=== PATIENT | male | born 2000 | race Caucasian/White ===

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

== ENCOUNTER → 2018-04-23 15:21 | Outpatient (CLI) | payer SELFPAY ==
[2018-04-23 16:56] LABS: Free T3 3.4 pg/mL (2.18-3.98); T4 Free Direct 1.07 ng/dL (0.76-1.46); Thyroid Stim Hormone (TSH) 2.64 uIU/mL (0.358-3.74)
== END ==
PROVIDERS: Family Provider Family Medicine; PCP Family Medicine; Visit Provider Nurse Practitioner
DX: E03.9 Hypothyroidism, unspecified (principal)
CPT/HCPCS: 36415; 84439; 84443; 84481

== ENCOUNTER 2019-02-05 20:54 | Emergency (ER) | payer SELFPAY ==
[2019-02-05 20:55] VITALS: BP 122/77; PULSE 102; RESP 16; TEMP 36.8; O2SAT 98; BMI 25.2
--- NOTE | 2019-02-05 22:30 | ED.VISSUMM ---
- ER Visit Summary Date of Service: 02/05/19 Chief Complaint: Right ear pain and decreased hearing History of Present Illness: The patient is a 19 M who presents with right ear pain and decreased hearing from the right ear. He was playing basketball and was hit in the right ear with a basketball. He had immediate pain and complains of decreased hearing since that time. He does have a history of surgery 8 years ago for a hole in his ear. No fever. No headache. No vomiting. Physical Examination: Heart rate 102 vitals otherwise normal There is scarring of the right tympanic membrane and some effusion but I do not appreciate any perforation or hematorrhea/otorrhea Heart regular rate and rhythm Lungs clear Test Results: Not indicated Emergency Department Course and Treatment: Patient advised to follow-up with otolaryngology. Patient discharged. Treatment Plan: [] Disposition: Discharge Impression: Right ear pain This note was generated with [employer] dictation software. It may contain incorrect words, spelling, and punctuation that were not noted in review of the chart prior to signing ED Disposition - Plan for ED Patient: Referrals: NOT,DEFINED [Primary Care Provider] -
--- NOTE | 2019-02-05 22:31 | ED.DEP ---
ED Disposition - Plan for ED Patient: Referrals: NOT,DEFINED [Primary Care Provider] - Luis Alberto Cheema MD [STAFF PHYSICIAN] - Additional Instructions: You were seen today for right ear pain after being hit with a basketball. It is important that you follow-up with ENT given your prior history of surgery. Return for new or worsening symptoms.
== END 2019-02-05 22:38 | disposition home or self-care (01) ==
LOC: ED 22:34
PROVIDERS: Emergency Provider Emergency Medicine
DX: H92.01 Otalgia, right ear (principal); W21.05XA Struck by basketball, initial encounter; Y93.67 Activity, basketball; Y92.9 Unspecified place or not applicable; E03.9 Hypothyroidism, unspecified; Z79.899 Other long term (current) drug therapy
CPT/HCPCS: 99282

== ENCOUNTER 2019-11-27 17:42 | Emergency (ER) | payer SELFPAY ==
[2019-11-27 17:42] VITALS: BP 150/83; PULSE 92; RESP 16; TEMP 36.6; O2SAT 99; BMI 25.8
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
== END 2019-11-27 19:58 | disposition home or self-care (01) ==
PROVIDERS: Emergency Provider Emergency Medicine
DX: S06.0X0A Concussion without loss of consciousness, initial encounter (principal); W51.XXXA Accidental striking against or bumped into by another person, initial encounter; Y93.9 Activity, unspecified; Y92.9 Unspecified place or not applicable; E03.9 Hypothyroidism, unspecified; Z79.899 Other long term (current) drug therapy
CPT/HCPCS: 70450; 72125; 99282

== ENCOUNTER 2020-07-16 21:49 | Emergency (ER) | payer OTHER, MEDICAID, SELFPAY ==
[2020-07-16 21:50] VITALS: BP 129/73; PULSE 50; RESP 17; TEMP 37.2; O2SAT 100; BMI 24.2
--- NOTE | 2020-07-16 22:10 | RAD_ITS ---
HISTORY: Injury playing basketball Sunday, pain laterally. COMPARISON: None FINDINGS: # of images incl. paperwork: 4 XR Shoulder Min 2 Views: Right BONE AND JOINTS: No acute fracture or subluxation. SOFT TISSUES: Unremarkable. No radiopaque foreign body. RAD/Shoulder min 2 Views IMPRESSION: No acute pathology If symptoms persist, repeat study in 10-14 days or sooner if clinically indicate at 2356 Reported and signed by: Марина Ng DO Electronically Signed: Марина Ng DO at 23:55 EDT Tel , Service support ,
--- NOTE | 2020-07-16 22:11 | ED.VIS.GEN ---
History of Present Illness Chief Complaint: Upper Extremity Injury Informant: Patient Narrative: 20-year-old male with past medical history of hypothyroidism presents with right shoulder pain. States that he was playing basketball approximately 5 days ago when he fell on his right shoulder. Has had pain since that time. Worse with movement. Denies any relieving factors. Denies any numbness or tingling. Describes the pain as aching. Denies any head injury. Past Medical History - Allergies and Home Meds Allergies/Adverse Reactions: Allergies No Known Allergies Allergy (Verified 07/16/20 21:49) Primary Care Physician: Care Physician,No Primary [Primary Care Provider] - Past Medical History: - - hypothyroidism Surgical History: tonsillectomy Lives: With Family Smoking Status: Smoker, status unknown Alcohol: None Drugs: None Review of Systems General: Denies: Chills, Fever, Sweats Eyes: Denies: Visual changes - bilaterally, Diplopia ENT: Denies: Rhinorrhea, Sore throat Cardiovascular: Denies: Chest pain, Palpitations Respiratory: Denies: Dyspnea, Cough, Dyspnea on exertion Gastrointestinal: Denies: Abdominal pain, Nausea, Vomiting, Diarrhea, Melena, Hematochezia Genitourinary: Denies: Dysuria, Hematuria, Frequency Musculoskeletal: Reports: Arthralgias. Denies: Back pain, Extremity Pain Skin: Denies: Rash, Wounds Neurological: Denies: Headache, Weakness, Numbness Physical Exam Vital Signs/Narrative: Vital Signs Temp Pulse Resp BP Pulse Ox 07/16/20 21:50 99.0 F 50 L 17 129/73 H 100 Inital Vital Signs reviewed: Yes General: Well nourished, Well developed, No Acute Distress Head: Normocephalic, Atraumatic Eyes: Perrl, EOMI ENT: Moist mucous membranes, No rhinorrhea Neck: Supple, Nontender Cardiovascular: Regular rate, Regular rhythm, No murmurs Respiratory: No distress, CTA bilaterally, Chest nontender Abdomen: Soft, Nontender, Nondistended, Normal bowel sounds Back: Nontender, Normal Inspection Extremities: No edema, - - TTP of the right anterior shoulder. ROM limited by pain. Skin: Normal color, No rash Neurological: Alert, Oriented x3, Cranial nerves II-XII grossly intact, Normal Strength, Normal Sensation Psychological: Normal affect, Normal Mood Diagnostic/Tx/Re-eval - Medical Decision Making Patient appears well and nontoxic. Patient given intramuscular Toradol which did improve his pain. X-ray not currently read by radiologist at the time but I see no acute fracture dislocation. Patient will be given Naprosyn for home. Orthopedic follow-up if continued pain. Asked return for new or worsening symptoms. Discharged home in stable condition. Impression: 1. Right shoulder contusion ED Disposition - Plan for ED Patient: Disposition: Home or Assisted Living Instructions: ED EXTREMITY CONTUSION Upper Prescriptions: Naproxen [Naprosyn] 500 mg PO BID #14 tab Prescription Printed Referrals: Minnie Teresa MD [STAFF PHYSICIAN] - 2 Days Rambo Oneil DO [STAFF PHYSICIAN] - 1 Week if not improving
[2020-07-16] MEDS: Ketorolac 15 MG/ML Vial IM (22:16)
== END 2020-07-17 00:14 | disposition home or self-care (01) ==
PROVIDERS: Emergency Provider Emergency Medicine
DX: S40.011A Contusion of right shoulder, initial encounter (principal); W19.XXXA Unspecified fall, initial encounter; Y93.67 Activity, basketball; Y92.9 Unspecified place or not applicable; E03.9 Hypothyroidism, unspecified; Z79.899 Other long term (current) drug therapy
CPT/HCPCS: 73030; 96372; 99282

== ENCOUNTER 2020-10-31 14:17 | Emergency (ER) | payer OTHER, MEDICAID, SELFPAY ==
[2020-10-31 14:17] VITALS: BP 150/96; PULSE 115; RESP 18; TEMP 36.4; O2SAT 100; BMI 24.0
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
[2020-10-31] MEDS: Acetaminophen 500 MG Tablet 1000 MG PO (15:17)
[2020-10-31] MEDS: Diphth,Pertuss(Acell),Tet Vac 0.5 ML Vial IM (15:17)
== END 2020-10-31 15:25 | disposition home or self-care (01) ==
LOC: ED 15:07
PROVIDERS: Emergency Provider Emergency Medicine
DX: S93.401A Sprain of unspecified ligament of right ankle, initial encounter (principal); S70.12XA Contusion of left thigh, initial encounter; V43.52XA Car driver injured in collision with other type car in traffic accident, initial encounter; Y93.9 Activity, unspecified; Y92.9 Unspecified place or not applicable; E03.9 Hypothyroidism, unspecified; Z79.899 Other long term (current) drug therapy
CPT/HCPCS: 73552; 73610; 90471; 90715; 99283

== ENCOUNTER 2020-12-02 16:47 | Emergency (ER) | payer OTHER, MEDICAID, SELFPAY ==
[2020-12-02 16:48] VITALS: BP 156/73; PULSE 59; RESP 16; TEMP 36.5; O2SAT 97; BMI 23.1
--- NOTE | 2020-12-02 17:03 | CT_ITS ---
STUDY: CT CERVICAL SPINE WITHOUT CONTRAST REASON FOR EXAM: Male, 20 years old. neck pain RADIATION DOSAGE (If Supplied By Facility): CTDIvol = ( 19.75 ) mGy, DLP = ( 442.60 ) mGycm TECHNIQUE: High resolution transaxial imaging was performed without contrast material. Sagittal and coronal images were reconstructed. Individualized dose optimization techniques were used for this CT. COMPARISON: 11/27/2019 FINDINGS: Normal craniovertebral junction. Normal anterior atlantoaxial articulation. Normal odontoid process. Normal cervical lordosis. Normal vertebral bodies and posterior osseous elements. C2-3: Normal endplates. Normal disc height and morphology. Normal central canal and intervertebral neuroforamina. C3-4: Normal endplates. Normal disc height and morphology. Normal central canal and intervertebral neuroforamina. C4-5: Normal endplates. Normal disc height and morphology. Normal central canal and intervertebral neuroforamina. C5-6: Normal endplates. Normal disc height and morphology. Normal central canal. Severe left neuroforaminal stenosis secondary to bony hypertrophy C6-7: Normal endplates. Normal disc height and morphology. Normal central canal and intervertebral neuroforamina. C7-T1: Normal endplates. Normal disc height and morphology. Normal central canal and intervertebral neuroforamina. Normal visualized soft tissue structures. No significant change since prior exam CT/Spine Cervical without Contras IMPRESSION: No acute fracture or other significant bony pathology. Severe left neuroforaminal stenosis secondary to bony hypertrophy Electronically Signed: Sebastien Min MD at 18:01 EDT , Service support ,
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
== END 2020-12-02 19:01 | disposition home or self-care (01) ==
LOC: ED 17:40
PROVIDERS: Emergency Provider Emergency Medicine; PCP Nurse Practitioner Family
DX: M54.12 Radiculopathy, cervical region (principal)
CPT/HCPCS: 70450; 72125; 99282; J7030

== ENCOUNTER → 2021-01-12 16:05 | Outpatient (CLI) | payer OTHER, MEDICAID, SELFPAY ==
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
== END ==
PROVIDERS: PCP Nurse Practitioner Family; Referring Provider Orthopaedic Surgery; Visit Provider Orthopaedic Surgery
DX: M54.12 Radiculopathy, cervical region (principal); Z87.828 Personal history of other (healed) physical injury and trauma
CPT/HCPCS: 72141

== ENCOUNTER 2022-05-24 17:45 | Emergency (ER) | payer OTHER, MEDICAID, SELFPAY ==
[2022-05-24 17:46] VITALS: BP 146/70; PULSE 60; RESP 14; TEMP 36.6; O2SAT 100; BMI 23.6
--- NOTE | 2022-05-24 19:29 | EDS_ITS ---
HPI History of Present Illness Chief Complaint: Lower Extremity Injury Informant: patient Narrative Narrative: Patient has left thigh pain after getting hit with the knee in basketball. This happened to 3 days ago. It is still sore. No other complaint. Pressing on it makes it worse and rest makes it better. PFSH PFS Medical History Asthma Back problem Hypothyroidism Home Medications levothyroxine 50 mcg tablet 50 mcg PO QDAY #30 tabs 11/04/18 [Rx Last Taken Unknown] naproxen 500 mg tablet 500 mg PO BID #14 tabs 07/16/20 [Rx Last Taken Unknown] methylprednisolone 4 mg tablets in a dose pack 4 mg PO UD ##1 12/02/20 [Rx Last Taken Unknown] naproxen 500 mg tablet 500 mg PO BID #20 tabs 05/24/22 [Rx Last Taken Unknown] Allergy/AdvReac Type Severity Reaction Status Date / Time No Known Allergies Allergy Verified 05/24/22 17:46 Family History Mother Asthma Arthritis Hyperthyroidism Social History Smoking Status: Current every day smoker tobacco type: e-cigarettes ROS ROS ED Constitutional Constitutional ED: Denies chills, fever(s) or subjective Cardiovascular Cardiovascular: Denies chest pain or palpitations Respiratory/Chest Respiratory/Chest: Denies cough or dyspnea Gastrointestinal Gastrointestinal: Denies nausea or vomiting Musculoskeletal Musculoskeletal: Reports arthralgias, myalgias and other Details: See history of present illness Integumentary Denies rash Neurologic Neurologic: Denies paresthesias or weakness Hematologic/Lymphatic Hematologic/Lymphatic: Denies easy bleeding or easy bruising Allergic/Immunologic Allergic/Immunologic ED: Denies urticaria EXAM Physical Exam Const Vital Signs: 05/24/22 17:46 Temperature 98 F Temperature Source Temporal Pulse Rate 60 Respiratory Rate 14 Blood Pressure 146/70 H Blood Pressure Mean 95 Pulse Ox 100 Oxygen Delivery Method Room Air Positive well nourished and well developed General Appearance ED: well developed and NAD HEENT Reports moist mucous membranes Negative for trauma Resp normal respiratory effort and clear to auscultation bilaterally Cardio regular rate and regular rhythm Extremity normal to inspection Extremity Narrative: Thigh does not look bruised or swollen. I do not feel hematoma. But he has diffuse anterior lateral thigh tenderness. No deformity. Extensor mechanism is intact. I do not feel any muscular or tendinous defect. Knee is not swollen. Neuro no sensory deficits noted Sensorium / Orientation: alert Motor Exam: strength 5/5 throughout Psych mental status grossly normal Skin no rashes or lesions noted MDM MDM MDM Narrative Medical decision making narrative: X-ray is negative. He likely be placed on nonsteroidals. We discussed icing and some compressive wrap. I also discussed the potential risk of calcification of the hematoma. Radiography Diagnostic Testing: Clinical Impression(s) from Imaging Studies Femur X-Ray 05/24/22 19:40 IMPRESSION: Normal x-ray examination of the left femur. Electronically Signed: Deshaun Hurtado DO at 20:33 EDT Reading Location ID and State: [address] [place] [address] Tel [phone], Service support , Discharge Plan Triage Chief Complaint: Lower Extremity Injury ED Provider: Garrett Medina Dx/Rx/DC Orders Clinical Impression: Contusion of left thigh Instructions: ED Contusion, Lower Extremity Prescriptions: New naproxen 500 mg tablet 500 mg PO BID Qty: 20 0RF No Action naproxen 500 MG tablet 500 mg PO BID Qty: 14 0RF methylprednisolone 4 MG tablets,dose pack 4 mg PO UD Qty: 1 0RF levothyroxine 50 mcg tablet 50 mcg PO QDAY Qty: 30 3RF Primary Care Provider: Que Parekh NP Referrals: Que Parekh NP, MAIL DISTRIBUTION SCHEME EXAMINER-C [Primary Care Provider] - 1-2 Weeks Disposition Disposition: Home, Self Care
--- NOTE | 2022-05-24 19:40 | RAD_ITS ---
STUDY: X-RAY - LEFT FEMUR REASON FOR STUDY: Male, 22 years old. Took a knee to the left thigh while playing basketball. Pain. TECHNIQUE: AP and lateral view(s) of the femur. COMPARISON: None. FINDINGS: Normal visualized femur. Is no acute fracture or dislocation. The hip and knee are intact. Normal visualized soft tissue structure. RAD/Femur Min 2 Views IMPRESSION: Normal x-ray examination of the left femur. Electronically Signed: Deshaun Hurtado DO at 20:33 EDT ,
== END 2022-05-24 20:51 | disposition home or self-care (01) ==
PROVIDERS: Emergency Provider Emergency Medicine; PCP Nurse Practitioner Family; Visit Provider Emergency Medicine
DX: S70.12XA Contusion of left thigh, initial encounter (principal); Y93.67 Activity, basketball; W21.05XA Struck by basketball, initial encounter; F17.290 Nicotine dependence, other tobacco product, uncomplicated; J45.909 Unspecified asthma, uncomplicated; E03.9 Hypothyroidism, unspecified; Z79.899 Other long term (current) drug therapy
CPT/HCPCS: 73552; 99282

== ENCOUNTER 2023-06-23 17:15 | Emergency (ER) | payer OTHER, MEDICAID, SELFPAY ==
[2023-06-23 17:17] VITALS: BP 153/94; PULSE 80; RESP 16; TEMP 36.3; O2SAT 100; BMI 21.9
--- NOTE | 2023-06-23 17:21 | EX.ED.DYSGE1 ---
HPI History of Present Illness Chief Complaint: Abd Pain [facility] Medical History Asthma Back problem Hypothyroidism Home Medications levothyroxine 50 mcg tablet 50 mcg PO QDAY #30 tabs 11/04/18 [Rx Last Taken Unknown] naproxen 500 mg tablet 500 mg PO BID #14 tabs 07/16/20 [Rx Last Taken Unknown] methylprednisolone 4 mg tablets in a dose pack 4 mg PO UD ##1 12/02/20 [Rx Last Taken Unknown] naproxen 500 mg tablet 500 mg PO BID #20 tabs 05/24/22 [Rx Last Taken Unknown] Allergy/AdvReac Type Severity Reaction Status Date / Time No Known Allergies Allergy Verified 06/23/23 17:18 Family History Mother Asthma Arthritis Hyperthyroidism Social History Smoking Status: Current every day smoker tobacco type: e-cigarettes EXAM Physical Exam Const Vital Signs: 06/23/23 17:17 Temperature 97.3 F L Temperature Source Temporal Pulse Rate 80 Respiratory Rate 16 Blood Pressure 153/94 H Blood Pressure Mean 113 Pulse Ox 100 Oxygen Delivery Method Room Air MDM MDM MDM Narrative Medical decision making narrative: HISTORY OF PRESENT ILLNESS: 23year old male presents with right-sided abdominal pain. No transabdominal pain is started approximate 3 days ago and worsened this morning. No nausea no vomiting. Last bowel was this morning with no melena medic easier. No history abdominal surgeries. Denies any urinary complaints or testicular pain. REVIEW OF SYSTEMS: All other systems reviewed and are negative except as noted in the history of present illness. At least 10 review of systems reviewed and are negative except as noted in history of present illness. PHYSICAL EXAM: Nursing triage notes reviewed, Vital signs reviewed Constitutional: please see mdm HENT: MMM Eyes: Pupils equal round and reactive to light, Extraocular muscles intact Neck: No stridor, no JVD, full neck ROM Lungs: Clear to auscultation, No wheezing or rales. No increased work of breathing, no conversational dyspnea, no accessory muscle use, no nasal flaring. No respiratory distress noted Heart: Regular rate and rhythm, No murmurs, No rubs and No gallops, 2+ distal pulses (radial, femoral, posterior tibial) in all extremities Abdomen: Soft, no discernible palpable tenderness, no rigidity, rebound or guarding, no obvious peritoneal signs, no palpable pulsatile abdominal masses, no auscultated abdominal bruit : No CVAT Extremities: No edema Neuro: No focal neurological deficits, cranial nerves II through XII intact, 5/5 strength in all extremities. Intact sensation to light touch in all extremities, 2+ reflexes bilateral patella tendons. Normal gait. No ataxia. Skin: No rash or lesions noted MEDICAL DECISION MAKING: Chief Complaint: abdominal pain External records reviewed: Prior imaging studies reviewed: No recent advanced imaging of the abdomen or pelvis noted Factors affecting care: Hypothyroidism Social determinants of health:n current everyday smoker History obtained from others: none Consults: none ALL IMAGES (IF OBTAINED) HAVE BEEN PERSONALLY REVIEWED AND INTERPRETED BY MYSELF. CBC without leukocytosis, severe anemia, no thrombocytopenia. BMP without evidence of significant electrolyte abnormalities, no anion gap, no acute kidney injury. LFTs show no evidence of hepatobiliary pathology. Lipase is wnl indicating no pancreatic inflammation. MDM Narrative: Patient was hemodynamically stable, afebrile, nontoxic-appearing. Exam without peritoneal signs. Not tender to palpation. I considered the following differential diagnosis: AAA, small bowel obstruction, abdominal perforation, appendicitis, pancreatitis, hepatobiliary pathology (acute cholecystitis), mesenteric ischemia, abnormalities such as pyelonephritis, nephrolithiasis I obtained a broad lab work-up and gave Toradol, Pepcid and fluids. Labs are unremarkable for signs of systemic inflammation, signs of hepatobiliary obstruction, pancreatitis, acute kidney injury or electrode abnormalities. Low suspicion for acute life-threatening process at this time. Repeat exam I see nothing that would suggest an acute abdomen at this time. Based on history physical exam, risk factors, I have a low for bowel obstruction, incarcerated hernia, acute pancreatitis, intra-abdominal abscess, perforated viscus, diverticulitis, cholecystitis, appendicitis, PID, ovarian torsion, ectopic and tubo-ovarian abscess is very low. There is no evidence of peritonitis sepsis or toxicity at this time. I feel the patient can be managed as an outpatient with follow-up with her primary physician in the next 24 to 48 hours or soon as possible. Instructions have been given for the patient to return to the ED for worsening pain, anorexia, high fevers, intractable vomiting or bleeding. The patient and/or family, caregivers express understanding. The patient and/or family, caregivers agrees with the plan. Total critical care time today provided was at least 0 minutes. This excludes separately billable procedures. Critical care time (if documented) is secondary to the patient having high probability of clinically significant/life threatening deterioration in the patient's condition which required my urgent intervention. Shared decision making: I will have a discussion with the patient and or visitors regarding risk/benefits of further testing or admission. They will be made aware of of the risk/benefits inherent in this decision they will be given the opportunity to voice understanding. Impression: 1. Abdominal pain Disposition: Charge De Diaz DO Lab Data Labs: Laboratory Results - last 24 hr 06/23/23 17:30 WBC 7.4 RBC 5.13 Hgb 15.0 Hct 45.1 MCV 87.9 MCH 29.2 MCHC 33.3 RDW Std Deviation 39.4 RDW Coeff of Nata 12.4 Plt Count 213 MPV 9.5 Immature Gran % (Auto) 0.400 Neut % (Auto) 58.0 Lymph % (Auto) 31.3 [place] % (Auto) 7.9 Eos % (Auto) 1.9 Baso % (Auto) 0.5 Absolute Neuts (auto) 4.3 Absolute Lymphs (auto) 2.33 Nucleated RBC % 0 Sodium 139 Potassium 3.6 Chloride 105 Carbon Dioxide 31.0 Anion Gap 3 L BUN 9 Creatinine 0.97 Estim Creat Clear Calc 117.26 Est GFR (MDRD) Af Amer 121 Est GFR (MDRD) Non-Af 100 BUN/Creatinine Ratio 9.3 L Glucose 110 H Calcium 8.8 Total Bilirubin 0.70 Direct Bilirubin 0.16 AST 16 ALT 25 Alkaline Phosphatase 89 Total Protein 7.7 Albumin 4.4 Globulin 3.3 Lipase 71 Discharge Plan Triage Chief Complaint: Abd Pain ED Provider: De Diaz Dx/Rx/DC Orders Prescriptions: No Action naproxen 500 MG tablet 500 mg PO BID Qty: 14 0RF methylprednisolone 4 MG tablets,dose pack 4 mg PO UD Qty: 1 0RF naproxen 500 mg tablet 500 mg PO BID Qty: 20 0RF levothyroxine 50 mcg tablet 50 mcg PO QDAY Qty: 30 3RF Primary Care Provider: Que Parekh NP Referrals: Blaz,Que STREET LIGHT MECHANIC, STREET LIGHT MECHANIC-C [Primary Care Provider] -
[2023-06-23 17:54] LABS: Absolute Lymphocyte Count 2.33 X10^3/uL (0.83-4.51); Absolute Neutrophil Count 4.3 X10^3/uL (2.0-7.7); Basophil# 0.04 X10^3/uL; Basophil% 0.5 % (0-1); Eosinophil# 0.14 X10^3/uL; Eosinophils% 1.9 % (0-5); Hematocrit 45.1 % (40-54); Lymphocyte # 2.33 X10^3/ul (0.83-4.51); Lymphocyte % 31.3 % (19-41); Mean Corp Hgb Conc 33.3 g/dL (32-36); Mean Corpuscular Hgb 29.2 pg (27.0-32.0); Mean Corpuscular Volume 87.9 fL (80-94); Mean Platelet Vol. 9.5 fl (6.2-12.0); Monocyte# 0.59 X10^3/uL; Monocyte% 7.9 % (0-10); NRBC Flagged by Analyzer 0 % (0-5); Neutrophil # 4.31 X10^3/uL (2.7-7.7); Platelet Count 213 K/mm3 (150-450); RBC Distribution Width CV 12.4 % (11.6-14.6); RBC Distribution Width SD 39.4 fl (35.1-43.9); Red Blood Count 5.13 M/mm3 (4.6-6.2); White Blood Count 7.4 K/mm3 (4.4-11.0)
[2023-06-23] MEDS: Ketorolac 15 MG/ML Vial IV (17:55)
[2023-06-23] MEDS: 0.9% Normal Saline (1000mL) 1,000 ML 1000 ML IV (17:55)
[2023-06-23] MEDS: Famotidine 200 MG/20 ML MDV 20 MG in 0.9% Normal Saline (Pres. free 8 ML 300 MG IV (17:56)
[2023-06-23 18:11] LABS: AST(SGOT) 16 U/L (15-37); Alanine Aminotransfer ALT/SGPT 25 U/L (16-61); Albumin, Serum 4.4 g/dL (3.2-5.0); Alkaline Phosphatase 89 U/L (45-117); Anion Gap 3 (5-15); BUN 9 mg/dL (7-18); BUN/Creat Ratio 9.3 RATIO (10-20); Bilirubin, Direct 0.16 mg/dL (0.00-0.30); Calcium,Total 8.8 mg/dL (8.5-10.1); Chloride 105 mmol/L (98-107); Creatinine, Serum 0.97 mg/dL (0.70-1.30); EST Glomerular Filtration Rate 100 mL/min (>60); Est Glom Filt Rate - Afr Amer 121 mL/min (>60); Estimated Creatinine Clearance 117.26 ml/min; Globulin 3.3 g/dL (2.2-4.2); Glucose 110 mg/dL (74-106); Lipase 71 U/L (13-75); Potassium 3.6 mmol/L (3.5-5.1); Protein, Total 7.7 g/dL (6.4-8.2); Sodium Level 139 mmol/L (136-145)
[2023-06-23 18:41] VITALS: PULSE 68; RESP 16
== END 2023-06-23 18:42 | disposition home or self-care (01) ==
PROVIDERS: Emergency Provider Emergency Medicine; PCP Nurse Practitioner Family; Visit Provider Emergency Medicine
DX: R10.9 Unspecified abdominal pain (principal); E03.9 Hypothyroidism, unspecified; Z79.899 Other long term (current) drug therapy; F17.290 Nicotine dependence, other tobacco product, uncomplicated
CPT/HCPCS: 80048; 80076; 83690; 85025; 96365; 96375; 99282; J7030; J7040; A4216; J3490

== ENCOUNTER 2023-06-29 21:54 | Emergency (ER) | payer OTHER, MEDICAID, SELFPAY ==
[2023-06-29 21:56] VITALS: BP 129/71; PULSE 63; RESP 16; TEMP 36.3; BMI 22.6
[2023-06-29 21:58] VITALS: BP 129/71; PULSE 63; RESP 22; TEMP 36.3
--- NOTE | 2023-06-29 22:14 | EDS_ITS ---
HPI History of Present Illness Chief Complaint: Abd Pain Informant: patient Narrative Narrative: Patient is a 23-year-old male with past medical history of hypothyroidism. He states that for approximately 2 weeks he has been having abdominal pain mainly in the epigastric right upper quadrant region. He states the pain will wax and wane but never completely goes away. He states he has been constipated but he denies any nausea vomiting diarrhea or dysuria or hematuria. He states that he has been giving it time to see if it would resolve and has not done so. He states that it does seem to be worse after eating but he cannot associate it with any certain type of foods. He reports that tonight the pain was more intense than it has been and secondary to this he presents for evaluation. [facility] Medical History Asthma Back problem Hypothyroidism Home Medications levothyroxine 50 mcg tablet 50 mcg PO QDAY #30 tabs 11/04/18 [Rx Last Taken Unknown] naproxen 500 mg tablet 500 mg PO BID #14 tabs 07/16/20 [Rx Last Taken Unknown] methylprednisolone 4 mg tablets in a dose pack 4 mg PO UD ##1 12/02/20 [Rx Last Taken Unknown] naproxen 500 mg tablet 500 mg PO BID #20 tabs 05/24/22 [Rx Last Taken Unknown] famotidine 20 mg tablet (Pepcid) 20 mg PO BID #60 tabs 06/30/23 [Rx Last Taken Unknown] oxycodone-acetaminophen 5 mg-325 mg tablet (Percocet) 1 tab PO Q6H PRN pain 3 days #12 tabs 06/30/23 [Rx Last Taken Unknown] Allergy/AdvReac Type Severity Reaction Status Date / Time No Known Allergies Allergy Verified 06/29/23 21:55 Family History Mother Asthma Arthritis Hyperthyroidism Social History Smoking Status: Current every day smoker tobacco type: e-cigarettes ROS ROS ED Constitutional Constitutional ED: Denies chills or fever(s) ENT ENT ED: Denies sore throat Cardiovascular Cardiovascular: Denies chest pain Respiratory/Chest Respiratory/Chest: Denies cough or dyspnea Gastrointestinal Gastrointestinal: Reports abdominal pain and constipation; Denies diarrhea, nausea or vomiting Genitourinary Genitourinary ED: Denies dysuria or hematuria Musculoskeletal Musculoskeletal: Denies myalgias Integumentary Denies rash Neurologic Neurologic: Denies headache(s) Hematologic/Lymphatic Hematologic/Lymphatic: Denies easy bleeding or easy bruising EXAM Physical Exam Const Vital Signs: 06/29/23 21:56 06/29/23 21:58 Temperature 97.4 F L 97.4 F L Temperature Source Temporal Temporal Pulse Rate 63 63 Respiratory Rate 16 22 H Blood Pressure 129/71 H 129/71 H Blood Pressure Mean 90 90 Positive well nourished and well developed General Appearance ED: well developed HEENT Reports moist mucous membranes HEENT Narrative: No signs of infection of the posterior pharynx Eyes PERRL and EOMs intact bilaterally General Eye ED: Negative for scleral icterus Neck supple Resp normal respiratory effort and clear to auscultation bilaterally Cardio regular rate and regular rhythm Rate: other Other Details: Radial and carotid pulses are equal and symmetric GI non-distended GI Narrative: Abdomen is soft and nondistended with hypoactive bowel sounds. There is pain on palpation mainly in the right upper quadrant without voluntary guarding or rigidity. Negative Cody sign. No pulsatile mass or fluid wave. Auscultation: hypoactive bowel sounds Palpation: soft Back/Spine Back/Spine Narrative: Faint right-sided CVA tenderness noted Extremity normal to inspection Neuro oriented x3, CN's II-XII intact bilaterally and no sensory deficits noted Sensorium / Orientation: alert Motor Exam: strength 5/5 throughout Psych mental status grossly normal Skin no rashes or lesions noted General Skin Exam: Negative for jaundice MDM MDM MDM Narrative Medical decision making narrative: Patient presented to the with stable vitals and a soft nonsurgical abdomen. However as his symptoms have been persistent for approximately 2 weeks and needed negative blood work-up 7 days ago I did elect to repeat labs and add a CT scan. Differential diagnosis is for biliary colic versus pancreatitis versus gastritis versus colitis versus potential obstruction. Lab work revealed no clinically significant findings and his CAT scan also revealed no acute changes. On reevaluation his abdomen is soft and nonsurgical and patient reports having improvement of pain after the medication that was provided. Therefore at this time patient is safe for discharge she will follow-up on an outpatient basis to have potential gallbladder ultrasound and/or HIDA scan if symptoms persist and will be started on Pepcid for potential gastritis as the cause of his symptoms. However at this time with stable vitals resolution of pain and a persistently soft and nonsurgical abdomen with negative blood work and CT scan he is safe for discharge History & Record Review Discussion w/independent historian: Patient Lab Data Attestation: I reviewed the patient's lab results. Labs: Laboratory Results - last 24 hr 06/29/23 06/29/23 06/29/23 22:25 22:25 22:55 WBC Cancelled Corrected WBC Cancelled RBC Cancelled Hgb Cancelled Hct Cancelled MCV Cancelled MCH Cancelled MCHC Cancelled RDW Std Deviation Cancelled RDW Coeff of Nata Cancelled Plt Count Cancelled MPV Cancelled Immature Gran % (Auto) Cancelled Neut % (Auto) Cancelled Lymph % (Auto) Cancelled [place] % (Auto) Cancelled Eos % (Auto) Cancelled Baso % (Auto) Cancelled Absolute Neuts (auto) Cancelled Absolute Lymphs (auto) Cancelled Total Counted Cancelled Neutrophils % (Manual) Cancelled Band Neutrophils % Cancelled Lymphocytes % (Manual) Cancelled Monocytes % (Manual) Cancelled Eosinophils % (Manual) Cancelled Basophils % (Manual) Cancelled Metamyelocytes % Cancelled Myelocytes % Cancelled Promyelocytes % Cancelled Blast Cells % Cancelled Plasma Cell % (Manual) Cancelled Other Cells % Cancelled Nucleated RBC % Cancelled Nucleated RBCs/100 WBC Cancelled Differential Comment Cancelled Diff Path Review Cancelled Hypersegmented Neuts Cancelled Atypical Lymphocytes Cancelled Reactive Lymphocytes Cancelled Smudge Cells Cancelled Toxic Granulation Cancelled Toxic Vacuolation Cancelled Dohle Bodies Cancelled Renae Rods Cancelled Platelet Estimate Cancelled Plt Morphology Comment Cancelled RBC Morphology Cancelled Cancelled Polychromasia Cancelled Hypochromasia Cancelled Poikilocytosis Cancelled Basophilic Stippling Cancelled Anisocytosis Cancelled Microcytosis Cancelled Macrocytosis Cancelled Spherocytes Cancelled Sickle Cells Cancelled Target Cells Cancelled Tear Drop Cells Cancelled Ovalocytes Cancelled Stomatocytes Cancelled Ang-[place] Bodies Cancelled [place] Cells Cancelled Bite Cells Cancelled Crenated Cell Cancelled Acanthocytes (Spur) Cancelled Rouleaux Cancelled Schistocytes Cancelled Sodium 138 Potassium 4.1 Chloride 107 Carbon Dioxide 28.0 Anion Gap 3 L BUN 16 Creatinine 0.89 Estim Creat Clear Calc 131.73 Est GFR (MDRD) Af Amer 133 Est GFR (MDRD) Non-Af 110 BUN/Creatinine Ratio 17.9 Glucose 129 H Calcium 8.1 L Total Bilirubin 0.70 Direct Bilirubin 0.10 AST 23 ALT 20 Alkaline Phosphatase 72 Total Protein 6.7 Albumin 3.8 Globulin 2.9 Lipase 70 Urine Color Yellow Urine Clarity Cloudy Urine pH 8.0 Ur Specific [place] 1.015 Urine Protein Negative Urine Glucose (UA) Normal Urine Ketones Negative Urine Occult Blood Negative Urine Nitrite Negative Urine Bilirubin Negative Urine Urobilinogen Normal Ur Leukocyte Esterase Negative Urine RBC 0 SEEN Urine WBC 0 SEEN Ur Squamous Epith Cells 0 SEEN Amorphous Sediment 3+ Urine Bacteria 1+ Urine Mucus 0 SEEN 06/29/23 23:00 WBC 8.5 Corrected WBC RBC 4.31 L Hgb 12.4 L Hct 37.8 L MCV 87.7 MCH 28.8 MCHC 32.8 RDW Std Deviation 39.7 RDW Coeff of Nata 12.3 Plt Count 176 MPV 9.6 Immature Gran % (Auto) 0.200 Neut % (Auto) 66.2 Lymph % (Auto) 25.4 [place] % (Auto) 5.8 Eos % (Auto) 2.0 Baso % (Auto) 0.4 Absolute Neuts (auto) 5.6 Absolute Lymphs (auto) 2.16 Total Counted Neutrophils % (Manual) Band Neutrophils % Lymphocytes % (Manual) Monocytes % (Manual) Eosinophils % (Manual) Basophils % (Manual) Metamyelocytes % Myelocytes % Promyelocytes % Blast Cells % Plasma Cell % (Manual) Other Cells % Nucleated RBC % 0 Nucleated RBCs/100 WBC Differential Comment Diff Path Review Hypersegmented Neuts Atypical Lymphocytes Reactive Lymphocytes Smudge Cells Toxic Granulation Toxic Vacuolation Dohle Bodies Renae Rods Platelet Estimate Plt Morphology Comment RBC Morphology Polychromasia Hypochromasia Poikilocytosis Basophilic Stippling Anisocytosis Microcytosis Macrocytosis Spherocytes Sickle Cells Target Cells Tear Drop Cells Ovalocytes Stomatocytes Ang-[place] Bodies Romario Cells Bite Cells Crenated Cell Acanthocytes (Spur) Rouleaux Schistocytes Sodium Potassium Chloride Carbon Dioxide Anion Gap BUN Creatinine Estim Creat Clear Calc Est GFR (MDRD) Af Amer Est GFR (MDRD) Non-Af BUN/Creatinine Ratio Glucose Calcium Total Bilirubin Direct Bilirubin AST ALT Alkaline Phosphatase Total Protein Albumin Globulin Lipase Urine Color Urine Clarity Urine pH Ur Specific [place] Urine Protein Urine Glucose (UA) Urine Ketones Urine Occult Blood Urine Nitrite Urine Bilirubin Urine Urobilinogen Ur Leukocyte Esterase Urine RBC Urine WBC Ur Squamous Epith Cells Amorphous Sediment Urine Bacteria Urine Mucus Radiography Diagnostic Testing: Clinical Impression(s) from Imaging Studies Abdomen/Pelvis CT 06/29/23 22:45 IMPRESSION: Prominent wall of the urinary bladder, cystitis versus nondistention. Small amount of free pelvic fluid nonspecific. No evidence of acute appendicitis. Electronically Signed: Marivel Quiñonez MD at 23:16 EDT , Discharge Plan Triage Chief Complaint: Abd Pain ED Provider: Andrea Syed Dx/Rx/DC Orders Clinical Impression: Nonspecific abdominal pain Instructions: Abdominal Pain Prescriptions: New famotidine [Pepcid] 20 mg tablet 20 mg PO BID Qty: 60 0RF oxycodone-acetaminophen [Percocet] 5-325 mg tablet 1 tab PO Q6H PRN (Reason: pain) 3 Days Qty: 12 0RF No Action naproxen 500 MG tablet 500 mg PO BID Qty: 14 0RF methylprednisolone 4 MG tablets,dose pack 4 mg PO UD Qty: 1 0RF naproxen 500 mg tablet 500 mg PO BID Qty: 20 0RF levothyroxine 50 mcg tablet 50 mcg PO QDAY Qty: 30 3RF Primary Care Provider: Que Parekh NP Referrals: Que Parekh NP, TRAILER BODY ASSEMBLER-C [Primary Care Provider] - Activity Restrictions/Additional Instructions: If symptoms persist please follow-up with your family doctor to discuss need for outpatient gallbladder ultrasound and/or HIDA scan. If you have any further concerns please return to the ER for repeat evaluation Disposition Disposition: Home, Self Care
[2023-06-29] MEDS: 0.9% Normal Saline (1000mL) 1,000 ML 999 ML IV (22:34)
[2023-06-29] MEDS: Ondansetron 4 MG/2 ML Vial IV (22:34)
[2023-06-29] MEDS: HYDROmorphone 0.5 MG/0.5 ML SYRINGE IV (22:34)
--- NOTE | 2023-06-29 22:45 | CT_ITS ---
EXAM: CT Abdomen And Pelvis W/ Contrast Injection HISTORY: abd pain RLQ PAIN X 2 WEEKS TECHNIQUE: Routine protocol CT abdomen pelvis. IV Contrast: IV 100mL Isovue-300 . Oral Contrast: without. Sagittal and coronal images were reconstructed. RADIATION DOSAGE (If Supplied By Facility): CTDIvol = ( 9.73 ) mGy, DLP = ( 487.66 ) mGycm Individualized dose optimization techniques were used for this CT. COMPARISON: None. LIMITATIONS: None. FINDINGS: LOWER CHEST: Unremarkable. LIVER: Unremarkable. GALLBLADDER/BILE DUCTS: Unremarkable. PANCREAS: Unremarkable. SPLEEN: Unremarkable. ADRENAL GLANDS: Unremarkable. KIDNEYS / URETERS: Unremarkable. BOWEL / MESENTERY: Unremarkable. No bowel obstruction. APPENDIX: Identified and normal. No evidence of acute appendicitis. PERITONEUM: No free air. Small amount of free fluid in the pelvis. VESSELS: Abdominal aorta is normal caliber. RETROPERITONEUM: Unremarkable. REPRODUCTIVE ORGANS: Unremarkable. BLADDER: Minimally distended. Prominent wall. ABDOMINAL WALL: Unremarkable. BONES: No acute abnormality. OTHER: None. CT/Abdomen/Pelvis W IV Cont ONLY IMPRESSION: Prominent wall of the urinary bladder, cystitis versus nondistention. Small amount of free pelvic fluid nonspecific. No evidence of acute appendicitis. Electronically Signed: Marivel Quiñonez MD at 23:16 EDT ,
[2023-06-29 22:58] LABS: AST(SGOT) 23 U/L (15-37); Alanine Aminotransfer ALT/SGPT 20 U/L (16-61); Albumin, Serum 3.8 g/dL (3.2-5.0); Alkaline Phosphatase 72 U/L (45-117); Anion Gap 3 (5-15); BUN 16 mg/dL (7-18); BUN/Creat Ratio 17.9 RATIO (10-20); Calcium,Total 8.1 mg/dL (8.5-10.1); Chloride 107 mmol/L (98-107); Creatinine, Serum 0.89 mg/dL (0.70-1.30); EST Glomerular Filtration Rate 110 mL/min (>60); Est Glom Filt Rate - Afr Amer 133 mL/min (>60); Estimated Creatinine Clearance 131.73 ml/min; Globulin 2.9 g/dL (2.2-4.2); Glucose 129 mg/dL (74-106); Lipase 70 U/L (13-75); Potassium 4.1 mmol/L (3.5-5.1); Protein, Total 6.7 g/dL (6.4-8.2); Sodium Level 138 mmol/L (136-145)
[2023-06-29 23:32] LABS: Mucous, Urine 0 SEEN /hpf (<or=2+); Red Blood Cells-Urine 0 SEEN /hpf (0-5); Squamous Epithelial Cells - UA 0 SEEN /hpf (0-5); White Blood Cells 0 SEEN /hpf (0-5)
[2023-06-29 23:34] LABS: Absolute Lymphocyte Count 2.16 X10^3/uL (0.83-4.51); Absolute Neutrophil Count 5.6 X10^3/uL (2.0-7.7); Basophil# 0.03 X10^3/uL; Basophil% 0.4 % (0-1); Eosinophil# 0.17 X10^3/uL; Hematocrit 37.8 % (40-54); Hemoglobin 12.4 g/dL (13.0-16.5); Lymphocyte # 2.16 X10^3/ul (0.83-4.51); Lymphocyte % 25.4 % (19-41); Mean Corp Hgb Conc 32.8 g/dL (32-36); Mean Corpuscular Hgb 28.8 pg (27.0-32.0); Mean Corpuscular Volume 87.7 fL (80-94); Mean Platelet Vol. 9.6 fl (6.2-12.0); Monocyte# 0.49 X10^3/uL; Monocyte% 5.8 % (0-10); NRBC Flagged by Analyzer 0 % (0-5); Neutrophil # 5.64 X10^3/uL (2.7-7.7); Neutrophil % 66.2 % (47-70); Platelet Count 176 K/mm3 (150-450); RBC Distribution Width CV 12.3 % (11.6-14.6); RBC Distribution Width SD 39.7 fl (35.1-43.9); Red Blood Count 4.31 M/mm3 (4.6-6.2); White Blood Count 8.5 K/mm3 (4.4-11.0)
[2023-06-30 00:26] LABS: Color, Urine Yellow (Yellow); Glucose, Dipstick Normal (Normal); Ketone-Dipstick Negative (Negative); Protein-Dipstick Negative (Negative); Specific Gravity, Urine 1.015 (1.002-1.030); Urine Bilirubin Dipstick Negative (Negative); Urine Clarity Cloudy (Clear)
[2023-06-30 00:27] LABS: Leukocyte Esterase-Dipstick Negative /ul (Negative); Nitrite-Dipstick Negative (Negative); Occult Blood-Urine Negative /ul (Negative); Urine Urobilinogen Normal (Normal)
[2023-06-30 00:30] LABS: Amorphous Sediment 3+; Bacteria 1+ /hpf (None Seen)
== END 2023-06-30 01:11 | disposition home or self-care (01) ==
PROVIDERS: Emergency Provider Emergency Medicine; PCP Nurse Practitioner Family; Visit Provider Emergency Medicine
DX: R10.9 Unspecified abdominal pain (principal); E03.9 Hypothyroidism, unspecified; Z79.899 Other long term (current) drug therapy; F17.290 Nicotine dependence, other tobacco product, uncomplicated
CPT/HCPCS: 74177; 80048; 80076; 81001; 83690; 85025; 96361; 96374; 96375; 99282; J7030; Q9967; A4216; J2405